=== PATIENT | female | born 1975 | race Caucasian/White ===

== ENCOUNTER 2020-12-12 22:33 | Emergency (ER) | payer MEDICAID ==
[~2020-12-12] VITALS: Ht 167.6 cm; Wt 97.5 kg
[2020-12-12 22:41] VITALS: Ht 167.6 cm; Wt 97.5 kg
[2020-12-12] MEDS ORDERED: ULTRAM50 MG PO (23:30)
[2020-12-12] MEDS ORDERED: ROBAXIN-750750 MG PO (23:30)
[2020-12-13 00:25] VITALS: BP 115/75
== END 2020-12-13 00:25 | disposition home or self-care (01) ==
LOC: ED 22:33
DX: G89.29 Other chronic pain (principal); M54.5 Low back pain; M62.830 Muscle spasm of back; Z88.8 Allergy status to other drugs, medicaments and biological substances
CPT/HCPCS: J1885